=== PATIENT | male | born 1950 | race American Indian/Alaskan Native ===

== ENCOUNTER 2017-04-18 21:52 | Observation (INO) | payer OTHER ==
[2017-04-18 21:59] VITALS: BMI 46.0
[2017-04-18] MEDS ORDERED: Sodium Chloride 0.9% 1,000 ML IV STA (22:02)
--- NOTE | 2017-04-18 22:12 | ED PDOC ---
Arrival/HPI - General Time Seen by Provider: 04/18/17 22:02 Historian: Patient - History of Present Illness Narrative History of Present Illness (Text): 04/18/17 22:04 66yo morbidly obese male with PMhx of hypertension, NIDDM, hypercholestremia, CVA bib Bls present with complaint of nausea and vomiting. The by the bedside states patient had CVA 3weeks ago and currently at [facility] where he came from. States he started vomiting today. Vomited x3 today. Also report cough and elevated BP. Patient denies diarrhea, abdominal pain, chest pain, SOB, visual changes, headache, any other complaint. Past Medical History - Provider Review Nursing Documentation Reviewed: Yes Family/Social History - Physician Review Nursing Documentation Reviewed: Yes Family/Social History: Unknown Family HX Allergies/Home Meds Allergies/Adverse Reactions: Allergies No Known Allergies Allergy (Verified 04/18/17 21:59) Home Medications: Home Meds Medication Instructions Recorded Confirmed Amlodipine/Valsartan [Exforge 5 1 tab PO DAILY 04/18/17 04/18/17 mg-160 mg] Enalapril Maleate [Vasotec] 20 mg PO BID 04/18/17 04/18/17 Fenofibrate Nanocrystallized 145 mg PO DAILY 04/18/17 04/18/17 [Tricor] Hydrochlorothiazide [Microzide] 12.5 mg PO DAILY 04/18/17 04/18/17 Insulin Aspart Prot/Insuln Asp 30 unit SQ BID 04/18/17 04/18/17 [Novolog Mix 70-30 Vial] Linagliptin [Tradjenta] 5 mg PO DAILY 04/18/17 04/18/17 Metoprolol Tartrate [Lopressor] 50 mg PO BID 04/18/17 04/18/17 Phenytoin, Extended [Dilantin 100 mg PO TID 04/18/17 04/18/17 Kapseals] Pregabalin [Lyrica] 50 mg PO DAILY 04/18/17 04/18/17 Rosuvastatin Calcium [Crestor] 10 mg PO DAILY 04/18/17 04/18/17 amLODIPine [Norvasc] 10 mg PO DAILY 04/18/17 04/18/17 levETIRAcetam [Keppra] 500 mg PO BID 04/18/17 04/18/17 Review of Systems - Physician Review All systems were reviewed & negative as marked: Yes - Review of Systems Constitutional: Normal Eyes: Normal ENT: Normal Respiratory: Cough. absent: SOB, Sputum, Wheezing Cardiovascular: Normal Gastrointestinal: Nausea, Vomiting. absent: Abdominal Pain, Constipation, Diarrhea, Hematochezia, Hematemesis Genitourinary Male: Normal Musculoskeletal: Normal Skin: Normal Neurological: Normal Endocrine: Normal Hemo/Lymphatic: Normal Psychiatric: Normal Physical Exam Vital Signs Reviewed: Yes Vital Signs Temp Pulse Resp BP Pulse Ox 04/19/17 00:18 71 15 172/89 H 94 L 04/18/17 22:00 98.3 F 75 18 143/52 L 96 Temperature: Afebrile Blood Pressure: Normal Pulse: Regular Respiratory Rate: Normal Appearance: Positive for: Well-Appearing, Non-Toxic, Comfortable Pain Distress: None Mental Status: Positive for: Alert and Oriented X 3 - Systems Exam Head: Present: Atraumatic, Normocephalic Pupils: Present: PERRL Extroacular Muscles: Present: EOMI Conjunctiva: Present: Normal Mouth: Present: Moist Mucous Membranes Neck: Present: Normal Range of Motion Respiratory/Chest: Present: Clear to Auscultation, Good Air Exchange. No: Respiratory Distress, Accessory Muscle Use, Wheezes, Decreased Breath Sounds, Rales, Retracting, Rhonchi, Tachypneic Cardiovascular: Present: Regular Rate and Rhythm, Normal S1, S2. No: Murmurs Abdomen: Present: Distention (Secondary to body habitus), Normal Bowel Sounds, Other (Soft). No: Tenderness, Peritoneal Signs, Rebound, Guarding, McBurney's Point Tender, Rovsing's Sign Present Back: Present: Normal Inspection Upper Extremity: Present: Normal Inspection. No: Cyanosis, Edema Lower Extremity: Present: Normal Inspection. No: Edema Neurological: Present: GCS=15, CN II-XII Intact, Speech Normal Skin: Present: Warm, Dry, Normal Color. No: Rashes Psychiatric: Present: Alert, Oriented x 3, Normal Insight, Normal Concentration Medical Decision Making ED Course and Treatment: 04/19/17 00:[address] IMPRESSION: 1. Nonspecific white matter changes. Acute infarction may be CT occult within first 24 hours. If a focal deficit persists, consider followup CT or MRI for further evaluation. 2. Incidental/non-acute findings are described above. Abdominal/Pelvic CT IMPRESSION: 1. Bilateral pleural effusions, RIGHT > LEFT. 2. Perinephric stranding, nonspecific. Correlate with urinalysis to exclude infection. 3. Prostate enlargement. Followup as clinically warranted. 4. Incidental/non-acute findings are described above EKG Sinus rhythm with 1st AV block; LAD @75bpm Pt in ED for stated history. His vomiting resolved after 2episodes of vomiting in ED. No leukocytosis was noted. Cr of 1.9 was noted. No old lab to compare. This could be pre renal azotemia. PT was hydrated in ED. Case was DW Dr. Leggett and pt was placed on OBS. - Lab Interpretations Lab Results: 04/18/17 22:35 04/18/17 22:35 Lab Results 04/18/17 22:35: Sodium 143, Potassium 3.8, Chloride 102, Carbon Dioxide 24, Anion Gap 21 H, BUN 18, Creatinine 1.9 H, Est GFR ( Amer) 43, Est GFR ( Non-Af Amer) 36, Random Glucose 205 H, Calcium 9.6, Total Bilirubin 0.5, AST 25 , ALT 24, Alkaline Phosphatase 96, Lactate Dehydrogenase 485, Total Creatine Kinase 112, Troponin I 0.02, Total Protein 6.9, Albumin 3.6, Globulin 3.3, Albumin/Globulin Ratio 1.1, Amylase 43, Lipase 47 04/18/17 22:35: PT 20.4 H, INR 1.77 H, APTT 41.0 H 04/18/17 22:35: WBC 9.9, RBC 3.78, Hgb 11.0 L, Hct 31.7 L, MCV 83.9, MCH 29.1, MCHC 34.7, RDW 12.9, Plt Count 286, MPV 9.5, Gran % 84.9 H, Lymph % (Auto) 9.7 L , Harnett % (Auto) 3.9, Eos % (Auto) 1.3 L, Baso % (Auto) 0.2, Gran # 8.41 H, Lymph # (Auto) 1.0 L, Harnett # (Auto) 0.4, Eos # (Auto) 0.1, Baso # (Auto) 0.02 - RAD Interpretation Radiology Orders: 02/28/18 22:03 ABDOMEN & PELVIS [ABD & PELVIS W/O PO OR IV CONT] [CT] Stat 04/18/17 22:49 HEAD W/O CONTRAST [CT] Stat - Medication Orders Current Medication Orders: Acetaminophen (Tylenol 325mg Tab) 650 mg PO Q6H PRN PRN Reason: Fever >100.4 F Amlodipine Besylate (Norvasc) 10 mg PO DAILY [facility] Sodium Chloride (Sodium Chloride 0.9%) 1,000 mls @ 100 mls/hr IV .Q10H STA Stop: 04/19/17 08:01 Last Admin: 04/18/17 22:34 Dose: 100 mls/hr eMAR Start Stop Document 04/18/17 22:34 CNR (Rec: 04/18/17 22:35 CNR [facility] [place] [facility] [id number] Intravenous Solution Start Date 04/18/17 Start Time 22:35 Sodium Chloride (Sodium Chloride 0.45%) 1,000 mls @ 100 mls/hr IV .Q10H [facility] Insulin Human Regular (Humulin R High) 0 units SC ACHS [facility] PRN Reason: Protocol Levalbuterol HCl (Xopenex) 1.25 mg IH TIDRESP [facility] Levetiracetam (Keppra) 500 mg PO BID [facility] Metoprolol Tartrate (Lopressor) 50 mg PO BID [facility] Ondansetron HCl (Zofran Inj) 4 mg IVP Q6H PRN PRN Reason: Nausea/Vomiting Pantoprazole Sodium (Protonix Inj) 40 mg IVP DAILY [facility] Phenytoin Sodium (Dilantin) 100 mg PO TID [facility] Pregabalin (Lyrica) 50 mg PO DAILY [facility] Discontinued Medications Famotidine (Pepcid) 20 mg IVP STAT STA Stop: 04/18/17 22:03 Last Admin: 04/18/17 22:35 Dose: 20 mg IVP Administration Document 04/18/17 22:35 CNR (Rec: 04/18/17 22:35 CNR [facility] [place] [facility] [id number] Charges for Administration # of IVP Administrations 1 Ondansetron HCl (Zofran Inj) 4 mg IVP STAT STA Stop: 04/18/17 22:03 Last Admin: 04/18/17 22:35 Dose: 4 mg IVP Administration Document 04/18/17 22:35 CNR (Rec: 04/18/17 22:35 CNR [facility] [id number]) Charges for Administration # of IVP Administrations 1 Disposition/Present on Arrival - Present on Arrival Any Indicators Present on Arrival: No History of DVT/PE: No History of Uncontrolled Diabetes: No Urinary Catheter: No History of Decub. Ulcer: No History Surgical Site Infection Following: None - Disposition Have Diagnosis and Disposition been Completed?: Yes Diagnosis: Pleural effusion, Vomiting, Renal insufficiency Disposition: HOSPITALIZED Disposition Time: 01:05 Patient Plan: Admission Patient Problems: Current Active Problems Problem Status Onset Pleural effusion Acute Vomiting Acute Condition: FAIR
[2017-04-18 22:57] LABS: BASO # 0.02 K/mm3 (0.0-2.0); BASO % 0.2 % (0.0-3.0); EOS # 0.1 (0.0-0.7); EOS % 1.3 % (1.5-5.0); GRAN # 8.41 (1.4-6.5); GRAN % 84.9 % (50.0-68.0); LYMPH % 9.7 % (22.0-35.0); MEAN CELL VOLUME 83.9 fl (80.0-105.0); MEAN CORPUSCULAR HEMOGLOBIN 29.1 pg (25.0-35.0); MEAN CORPUSCULAR HGB CONC 34.7 g/dl (31.0-37.0); MEAN PLATELET VOLUME 9.5 fl (7.0-11.0); MONO # 0.4 (0.1-0.6); MONO % 3.9 % (1.0-6.0); RBC 3.78 10^6/uL (3.5-6.1); RED CELL DISTRIBUTION WIDTH 12.9 % (11.5-14.5); WHITE BLOOD COUNT 9.9 10^3/ul (4.5-11.0)
[2017-04-18 23:05] LABS: ALB/GLOB RATIO 1.1 (1.1-1.8); ALBUMIN 3.6 g/dL (3.0-4.8); CALCIUM 9.6 mg/dL (8.4-10.5)
[2017-04-18 23:17] LABS: TROPONIN I 0.02 ng/mL
[2017-04-18 23:24] LABS: INR 1.77 (0.93-1.08); PROTHROMBIN TIME 20.4 SECONDS (9.4-12.5)
--- NOTE | 2017-04-19 00:40 | CT ---
EXAM: CT Head Without Intravenous Contrast CLINICAL HISTORY: 66 years old, male; Signs and symptoms; Other: Vomiting TECHNIQUE: Axial computed tomography images of the head/brain without intravenous contrast. All CT scans at this facility use one or more dose reduction techniques, viz.: automated exposure control; ma/kV adjustment per patient size (including targeted exams where dose is matched to indication; i.e. head); or iterative reconstruction technique. Coronal and sagittal reformatted images were created and reviewed. COMPARISON: No relevant prior studies available. FINDINGS: Brain: Moderate atrophy. No intracranial hemorrhage. No mass. Several scattered foci of decreased attenuation within periventricular/subcortical white matter. Probable chronic lacunar infarcts about basal ganglia/mckenna radiata/internal capsule. No definite edema. Ventricles: No hydrocephalus. Bones/joints: No acute fracture. Soft tissues: Unremarkable. Sinuses: Scattered minimal mucosal thickening. LEFT maxillary retention cyst. Mastoid air cells: No mastoid effusion. Orbits: Unremarkable as visualized. IMPRESSION: 1. Nonspecific white matter changes. Acute infarction may be CT occult within first 24 hours. If a focal deficit persists, consider followup CT or MRI for further evaluation. 2. Incidental/non-acute findings are described above.
--- NOTE | 2017-04-19 00:54 | CT ---
EXAM: CT Abdomen and Pelvis Without Intravenous Contrast CLINICAL HISTORY: 66 years old, male; Signs and symptoms; Vomiting TECHNIQUE: Axial computed tomography images of the abdomen and pelvis without intravenous contrast. All CT scans at this facility use one or more dose reduction techniques, viz.: automated exposure control; ma/kV adjustment per patient size (including targeted exams where dose is matched to indication; i.e. head); or iterative reconstruction technique. Coronal and sagittal reformatted images were created and reviewed. COMPARISON: No relevant prior studies available. FINDINGS: Limitations: Lack of intravenous contrast. Motion artifact - mild. Streak artifact - mild. Lower thorax: Minimal atelectasis/scarring. Small bilateral pleural effusions, right greater than left. Mild cardiomegaly. Small hiatal hernia. ABDOMEN: Liver: Unremarkable. Gallbladder and bile ducts: No calcified stones. No ductal dilation. Pancreas: Unremarkable. No ductal dilation. Spleen: Mild splenomegaly, AP dimension. Adrenals: No mass. Kidneys and ureters: Mild stranding about kidneys, nonspecific. No renal calculi. No hydronephrosis. Stomach and bowel: Few scattered diverticula within colon. No associated inflammatory stranding. No definite mural thickening. No obstruction. Appendix: Normal caliber. No definite inflammation. PELVIS: Bladder: Unremarkable. No stones. Reproductive: Enlarged prostate gland. Subperitoneal space: Mild stranding in presacral space, nonspecific. ABDOMEN and PELVIS: Intraperitoneal space: No significant fluid collection. No free air. Bones/joints: Mild degenerative changes of spine. No acute fracture. Probable bone island. Soft tissues: Minimal left gynecomastia. Small umbilical hernia containing fat. Minimal to mild stranding within subcutaneous tissues. Vasculature: Minimal atherosclerotic disease. No aneurysm. Lymph nodes: No pathologically enlarged lymph nodes. IMPRESSION: 1. Bilateral pleural effusions, RIGHT > LEFT. 2. Perinephric stranding, nonspecific. Correlate with urinalysis to exclude infection. 3. Prostate enlargement. Followup as clinically warranted. 4. Incidental/non-acute findings are described above.
[2017-04-19] MEDS: Sodium Chloride 0.45% 1,000 ML IV SCH (01:33)
[2017-04-19 01:37] LABS: URINE BILIRUBIN NEGATIVE (NEGATIVE); URINE BLOOD NEGATIVE (NEGATIVE); URINE GLUCOSE (UA) NEGATIVE (NEGATIVE); URINE LEUKOCYTE ESTERASE NEGATIVE Leu/uL (NEGATIVE); URINE NITRATE NEGATIVE (NEGATIVE); URINE PROTEIN 30 mg/dL (<30 mg/dL); URINE UROBILINOGEN 0.2 E.U./dL (<1 E.U./dL)
[2017-04-19 01:40] LABS: URINE APPEARANCE CLEAR (CLEAR); URINE COLOR YELLOW (YELLOW)
[2017-04-19 01:49] LABS: URINE BACTERIA RARE (NEG); URINE EPITHELIAL CELLS 0 - 2 /hpf (0-5); URINE RBC 0 - 2 /hpf (0-2)
--- NOTE | 2017-04-19 05:57 | CP.PCM.PN ---
Subjective - Date & Time of Evaluation Date of Evaluation: 04/19/17 Time of Evaluation: 05:56 - Subjective Subjective: Nurse calls with patient's BP 190/84. Seen at bedside. Has no complaints. No headache,dizziness, chest pain, sob. Medical record was reviewed. This 66 year old male was admitted with intractable nausea and vomiting. Has PMH of HTN, seizure, HLD, NIDDM, diabetic neuropathy, CVA,morbid obesity, HELEN, mentally challenged. Objective - Vital Signs/Intake and Output Vital Signs (last 24 hours): Temp Pulse Resp BP Pulse Ox 98.8 F 72 20 158/65 H 94 L 04/19/17 04:25 04/19/17 04:25 04/19/17 04:25 04/19/17 04:25 04/19/17 01:37 Intake and Output: 04/18/17 04/19/17 18:59 06:59 Intake Total 0 Output Total 100 Balance -100 - Medications Medications: Current Medications Acetaminophen (Tylenol 325mg Tab) 650 mg PO Q6H PRN PRN Reason: Fever >100.4 F Amlodipine Besylate (Norvasc) 10 mg PO DAILY [facility] Sodium Chloride (Sodium Chloride 0.9%) 1,000 mls @ 100 mls/hr IV .Q10H STA Stop: 04/19/17 08:01 Last Admin: 04/18/17 22:34 Dose: 100 mls/hr Sodium Chloride (Sodium Chloride 0.45%) 1,000 mls @ 100 mls/hr IV .Q10H [facility] Last Admin: 04/19/17 01:33 Dose: 100 mls/hr Insulin Human Regular (Humulin R High) 0 units SC ACHS [facility] PRN Reason: Protocol Levalbuterol HCl (Xopenex) 1.25 mg IH TIDRESP [facility] Levetiracetam (Keppra) 500 mg PO BID [facility] Metoprolol Tartrate (Lopressor) 50 mg PO BID [facility] Ondansetron HCl (Zofran Inj) 4 mg IVP Q6H PRN PRN Reason: Nausea/Vomiting Pantoprazole Sodium (Protonix Inj) 40 mg IVP DAILY [facility] Phenytoin Sodium (Dilantin) 100 mg PO TID [facility] Pregabalin (Lyrica) 50 mg PO DAILY [facility] - Labs Labs: PT 20.4 SECONDS (9.4-12.5) H 04/18/17 22:35 INR 1.77 (0.93-1.08) H 04/18/17 22:35 APTT 41.0 Seconds (25.1-36.5) H 04/18/17 22:35 - Constitutional Appears: Well, No Acute Distress - Head Exam Head Exam: ATRAUMATIC, NORMAL INSPECTION, NORMOCEPHALIC Additional comments: Obese. - Eye Exam Eye Exam: Normal appearance - ENT Exam ENT Exam: Normal External Ear Exam - Neck Exam Neck Exam: Normal Inspection - Respiratory Exam Respiratory Exam: NORMAL BREATHING PATTERN - Cardiovascular Exam Cardiovascular Exam: absent: JVD - GI/Abdominal Exam GI & Abdominal Exam: absent: Distended - Rectal Exam Rectal Exam: Deferred - Exam Additional comments: Deferred. - Extremities Exam Extremities Exam: Normal Inspection - Back Exam Back Exam: NORMAL INSPECTION - Neurological Exam Neurological Exam: Alert - Psychiatric Exam Psychiatric exam: Normal Affect, Normal Mood - Skin Skin Exam: Normal Color Assessment and Plan - Assessment and Plan (Free Text) Assessment: Elevated blood pressure reading. HTN. Morbid obesity. NIDDM. Diabetic neuropathy. HLD. Seizure disorder. Plan: Lopressor 50 mg po now instead of at 10am. Continue present management as per PMD.
[2017-04-19 07:23] LABS: BASO # 0.03 K/mm3 (0.0-2.0); BASO % 0.3 % (0.0-3.0); EOS # 0.1 (0.0-0.7); EOS % 0.9 % (1.5-5.0); GRAN # 9.12 (1.4-6.5); GRAN % 83.6 % (50.0-68.0); HEMOGLOBIN 10.8 g/dL (14.0-18.0); LYMPH # 1.3 (1.2-3.4); LYMPH % 11.6 % (22.0-35.0); MEAN CELL VOLUME 84.6 fl (80.0-105.0); MEAN CORPUSCULAR HEMOGLOBIN 28.7 pg (25.0-35.0); MEAN PLATELET VOLUME 9.5 fl (7.0-11.0); MONO # 0.4 (0.1-0.6); MONO % 3.6 % (1.0-6.0); RBC 3.76 10^6/uL (3.5-6.1); RED CELL DISTRIBUTION WIDTH 13.2 % (11.5-14.5); WHITE BLOOD COUNT 10.9 10^3/ul (4.5-11.0)
[2017-04-19 07:43] LABS: ALB/GLOB RATIO 1.1 (1.1-1.8); ALBUMIN 3.5 g/dL (3.0-4.8); CALCIUM 9.2 mg/dL (8.4-10.5); MAGNESIUM 1.6 mg/dL (1.7-2.2)
[2017-04-19] MEDS: Levalbuterol 1.25 MG/3 ML Inhal Soln UD IH SCH ×3 (07:48→20:06)
[2017-04-19 08:00] LABS: FREE T4 1.79 ng/dL (0.78-2.19)
[2017-04-19] MEDS: Insulin Reg-HIGH-Coverage SC SCH ×4 (08:12→21:51)
--- NOTE | 2017-04-19 10:31 | CARD ---
APPROVED REPORT EKG Measurement Heart [id number] <Conclusion> Somatic Tremors. Poor Quality EKG. Sinus rhythm with 1st degree AV block Left axis deviation Poor R Progression in V-Leads. ST & T wave abnormality,
[2017-04-19] MEDS ORDERED: Metoclopramide 5 mg/5 ml Oral Sol PO STA (12:09)
[2017-04-19] MEDS: Nystatin 100,000 Units/gm Topical Pow(15 gm) TOP SCH (19:32)
--- NOTE | 2017-04-19 20:51 | US ---
EXAM: US Abdomen Complete CLINICAL HISTORY: 66 years old, male; Signs and symptoms; Bloating; Additional info: Abdominal bloating TECHNIQUE: Real-time ultrasound of the abdomen (complete) with image documentation. COMPARISON: CT - ABD PELVIS W/O PO OR IV CONT 2017-04-19 00:03 FINDINGS: Liver: Enlarged, 18.0 cm. Fatty infiltration. No mass. No intrahepatic ductal dilatation. Gallbladder: Gallstones. Up to 0.48 cm wall thickness. No pericholecystic fluid. No sonographic Nava's sign. Common bile duct: No dilatation. No stones. Pancreas: Obscured by overlying bowel gas. Kidneys: Normal echogenicity. No hydronephrosis. Spleen: No splenomegaly. Aorta: Obscured by overlying bowel gas. Inferior vena cava: Unremarkable. Free fluid: No significant free fluid. Pleural space: Right pleural effusion. IMPRESSION: 1. Cholelithiasis with gallbladder wall thickening. Clinical correlation is needed. 2. Right pleural effusion. 3. Incidental/non-acute findings are described above.
[2017-04-20] MEDS: Sodium Chloride 0.45% 1,000 ML IV SCH ×2 (00:31→12:11)
--- NOTE | 2017-04-20 01:39 | CON ---
REASON FOR CONSULTATION: Cardiac evaluation. BRIEF CLINICAL HISTORY: This is a 66-year-old morbidly obese male with past medical history significant for diabetes more than 15 years, hypertension, hyperlipidemia, CVA, was just discharged from [facility] after being admitted with CVA because of nausea and vomiting. Patient denies any chest pain, shortness of breath or any palpitation. Cardiology consult was called for cardiac evaluation. Patient denies any chest pain. PAST MEDICAL HISTORY: Significant for "ND" 2 years ago, was taken to [facility] where the patient had a cardiac catheterization done and was told arteries are clean, does not need any stent. Significant for diabetes, hypertension, and hyperlipidemia. SOCIAL HISTORY: Denies any history of alcohol abuse. PAST SURGICAL HISTORY: Nothing significant. FAMILY HISTORY: Noncontributory. CURRENT MEDICATIONS: Patient is on amlodipine and valsartan that is Exforge combination 5/160 once daily, Keppra 500 mg, Lyrica, phenytoin, Tradjenta, insulin, rosuvastatin, Crestor, amlodipine, metoprolol, enalapril, and hydrochlorothiazide. ALLERGIES: NO KNOWN DRUG ALLERGIES. REVIEW OF SYSTEMS: As per HPI. PHYSICAL EXAMINATION: VITAL SIGNS: Temperature afebrile, heart rate 70, blood pressure 165/85, height of the patient is 5 feet 11 inches, weight of the patient 330 pounds, body mass index 46 kg/m2. HEENT: PERRLA. Extraocular muscles intact. NECK: Supple. No carotid bruits or thyromegaly. CHEST: Clear to auscultation. HEART: S1, S2, regular. ABDOMEN: Soft. EXTREMITIES: Clubbing and cyanosis negative. LABORATORY DATA: WBC 10.9, hemoglobin 10.6, hematocrit 31.8, platelet count 291. Chemistry showed sodium 142, potassium 3.6, chloride 102, carbon dioxide of 25, anion gap of 20, BUN 18, creatinine 1.7. Creatinine clearance is 41. EKG showed poor R-wave progression, normal sinus, LVH. IMPRESSION: Nausea, vomiting, significantly decreased creatinine clearance, chronic kidney disease stage III to IV, creatinine clearance of mL an hour, morbid obesity, diabetes, hypertension, hyperlipidemia, multiple risk factors for coronary artery disease, but patient states that he had a cardiac cath 2 years ago and was told mild disease, no stent required. RECOMMENDATION: Monitor electrolytes closely, watch for nausea, vomiting. Avoid nephrotoxic medication. We will get lipid profile, TSH, hemoglobin A1c. We will get echo to assess LV function. We will also get a copy of cath report from [facility]. Thank you Dr. Leggett for providing us the opportunity in taking care of the patient, Jack Erwin. Casie Fregoso MD cc: Tirnh Leggett MD
--- NOTE | 2017-04-20 03:18 | CON ---
DATE: HISTORY OF PRESENT ILLNESS: This is a 66-year-old male with past medical history of hypertension, diabetes, hypercholesterolemia, CVA 3 weeks ago. Patient went to [facility] for a rehab. While there, he started having vomiting and coughing, and his blood pressure was noted to be high, brought him to the hospital for further checkup. PAST MEDICAL HISTORY: Hypertension, diabetes, high cholesterol, CVA 3 weeks ago. REVIEW OF SYSTEMS: A 10-point review of systems was negative. HOME MEDICATIONS: Patient is on amlodipine, enalapril, metoprolol, Dilantin, and Keppra. PHYSICAL EXAMINATION: VITAL SIGNS: Blood pressure 143/52. HEENT: Normocephalic, atraumatic. NECK: Supple. NEUROLOGIC: Alert, awake, oriented x3. No aphasia. Cranial nerves II through XII are tested. Pupils reactive. EOM intact. Visual maravilla full. No facial asymmetry. Tongue midline. Motor examination; spontaneous movement of all the extremities noted. Deep tendon reflexes 1+. Both plantars are downgoing. Sensory appears intact. Cerebellar, gait deferred. IMPRESSION AND PLAN: A 66-year-old male who came from [facility] following a stroke 3 weeks ago. His left-sided weakness is improving. He started vomiting this morning, so brought him to [facility] for further workup. CAT scan of the head was done, which did not show any acute findings, no bleed. Also found to have some pleural effusion, right more than left, and workup in progress. Continue present management. We will follow up. Maikol Morrow MD
[2017-04-20 06:43] LABS: BASO # 0.04 K/mm3 (0.0-2.0); BASO % 0.4 % (0.0-3.0); EOS # 0.3 (0.0-0.7); EOS % 3.1 % (1.5-5.0); GRAN # 7.57 (1.4-6.5); GRAN % 75.8 % (50.0-68.0); HEMOGLOBIN 10.3 g/dL (14.0-18.0); LYMPH # 1.4 (1.2-3.4); MEAN CELL VOLUME 84.7 fl (80.0-105.0); MEAN CORPUSCULAR HEMOGLOBIN 28.1 pg (25.0-35.0); MEAN CORPUSCULAR HGB CONC 33.2 g/dl (31.0-37.0); MEAN PLATELET VOLUME 9.7 fl (7.0-11.0); MONO # 0.7 (0.1-0.6); MONO % 6.7 % (1.0-6.0); RBC 3.66 10^6/uL (3.5-6.1); RED CELL DISTRIBUTION WIDTH 13.1 % (11.5-14.5)
[2017-04-20 06:49] LABS: ALBUMIN 3.2 g/dL (3.0-4.8); MAGNESIUM 1.6 mg/dL (1.7-2.2)
[2017-04-20] MEDS: Levalbuterol 1.25 MG/3 ML Inhal Soln UD IH SCH ×3 (08:00→19:34)
--- NOTE | 2017-04-20 08:28 | HP ---
HISTORY OF PRESENT ILLNESS: Patient is 66 years old, who was sent from [facility] where he went for physical therapy. Patient has been having intractable nausea and vomiting. He had 4 to 5 episodes of vomiting. No abdominal pain. Patient's who is by the bedside states that he was admitted in [facility] from 03/31 to 04/13 after he had a second stroke. At that point, he was found to have AFib. He has been on anticoagulant and he was also found to have cholelithiasis. Initially, there was a plan to do cholecystectomy but it was held off because he started to improve. PAST MEDICAL HISTORY: Patient has significant past medical history of, 1. Hypertension. 2. Morbid obesity. 3. Mentally challenged. 4. History of CVA in 2009 with left hemiparesis. 5. Obstructive sleep apnea, but does not use BiPAP. 6. Non-insulin dependent diabetes. 7. Hypertension. 8. History of seizure disorder. 9. Diabetic neuropathy. 10. Hyperlipidemia. ALLERGIES: HE IS NOT ALLERGIC TO ANY MEDICATION. MEDICATIONS AT HOME: He is on Exforge 5/160, Keppra 500 twice a day, Lyrica 50 mg daily, Dilantin 100 mg three times a day, Tradjenta 5 mg daily, NovoLog, Crestor 10 mg daily, amlodipine 10 mg daily, metoprolol 50 mg twice a day, enalapril 20 mg twice a day. SOCIAL HISTORY: He lives with his . Denies smoking, drinking, or alcohol use. PHYSICAL EXAMINATION: GENERAL: He is awake, alert, retching, complains of feeling nauseous. VITAL SIGNS: He is afebrile. Pulse 72, respirations 20, blood pressure 176/84. LUNGS: Bilateral diffusely decreased breath sounds, more so in the bases. HEART: S1, S2 audible. Regular rate and rhythm. ABDOMEN: Soft, nontender, obese. No hepatosplenomegaly. NEUROLOGIC: He is awake and alert, has some left-sided 4/5 weakness. LABORATORY DATA: WBC is 10.9, hemoglobin 10.8, hematocrit 31.8, platelet of 291. PT is 20.4, INR 1.77. Chemistry: Sodium 142, potassium 3.7, chloride 102, CO2 of 25, BUN 18, creatinine 1.7, blood sugar of 205. CT scan of the abdomen and pelvis is unremarkable. CT scan of the head, nonspecific white matter changes. CT scan of the abdomen and pelvis showed bilateral pleural effusion, right more than the left and perinephric stranding, prostate enlargement. ASSESSMENT: 1. Intractable nausea and vomiting. Rule out acute cholecystitis. 2. Rule out gastroparesis. 3. Insulin-dependent diabetes. 4. Morbid obesity. 5. Pleural effusion. 6. Hypertension. 7. Hyperlipidemia. 8. Seizure disorder. PLAN: We will keep him n.p.o. We will give him IV fluids. I will check for Dilantin level, start him on Reglan, and GI consult by Dr. Suh, Cardiology consult by Dr. Olivarez, and Dr. Morrow also has been consulted. Follow up his electrolytes. Follow up patient in a.m. Trinh Leggett MD
[2017-04-20] MEDS: Insulin Reg-HIGH-Coverage SC SCH ×4 (08:39→21:30)
[2017-04-20] MEDS: Nystatin 100,000 Units/gm Topical Pow(15 gm) TOP SCH (10:11)
[2017-04-20] MEDS ORDERED: Magnesium Sulfate 1 gm in D5W 1 GM/100 ML BAG IV ONE ×2 (10:55→16:46)
[2017-04-20] MEDS ORDERED: Potassium Chloride 20 mEq ER Tab PO ONE (12:34)
--- NOTE | 2017-04-20 13:33 | PN ---
DATE: 04/20/2017 LOCATION: The patient in room 576, bed 1. REASON FOR CONSULTATION: History of CVA, hypertension, hyperlipidemia and diabetes mellitus, history of cardiac cath, cardiac evaluation. SUBJECTIVE: The patient is lying flat in bed without chest pain, shortness of breath or palpitation. The patient was admitted with nausea and vomiting. PHYSICAL EXAMINATION: VITAL SIGNS: Blood pressure 163/81, respirations 18, pulse 66, temperature 98.4. HEENT: Head is normocephalic. Eyes: Pupils normal. Conjunctivae slightly pale. NECK: JVP low. Carotids equal. THORAX: AP diameter normal. LUNGS: Clear. CARDIOVASCULAR: S1 and S2. ABDOMEN: Soft. No tenderness. No organomegaly. Bowel sounds normal. EXTREMITIES: No clubbing. No cyanosis. LABORATORY DATA: WBC 10.0, hemoglobin 10.3, hematocrit 31.0, platelets 263. Sodium 142, potassium 3.2, BUN 17, creatinine 1.5, glucose 168, another glucose 178, magnesium 1.6. AST, ALT normal. Total protein, albumin normal. 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 PLAN: The patient had cardiac catheterization 2 days ago at [facility]. As per the patient, it was told that he has normal coronaries. We will give potassium and magnesium therapy to the patient and we will repeat labs in the morning. In the meantime, the patient on hydralazine 25 t.i.d., Phenytoin 100 mg p.o. t.i.d., Keppra 500 b.i.d., metoprolol 50 b.i.d., Lyrica 50 daily, mag sulfate 1 g already ordered by Dr. Leggett, amlodipine 10 mg daily, Xopenex hand nebulizer therapy, K-Dur 40 mEq p.o. today. SMA-7, magnesium and phosphorus in the morning. Echo has been already ordered. We will follow. Casie Olivarez MD
--- NOTE | 2017-04-20 17:31 | CARD ---
APPROVED REPORT EXAM: Two-dimensional and M-mode echocardiogram with Doppler and color Doppler. INDICATION Chest Pain 2D DIMENSIONS Left Atrium (2D)5.5 (1.6-4.0cm)IVSd1.2 (0.7-1.1cm) LVDd5.8 (3.9-5.9cm)PWd1.5 (0.7-1.1cm) LVDs4.2 (2.5-4.0cm)FS (%) 28.3 % LVEF (%)54.0 (>50%) M-Mode DIMENSIONS Aortic Root3.90 (2.2-3.7cm)Aortic Cusp Exc.1.70 (1.5-2.0cm) Aortic Valve AoV Peak Arxnxvgg555.0cm/Beth Peak GR.7mmHg Mitral Valve MV E Xqfybbdw261.0cm/sMV A Lqewaixb17.1cm/sE/A ratio1.6 TDI Lateral E' Peak V6.53cm/sMedial E' Peak V4.87cm/sE/Lateral E'21.6 E/Medial E'29.0 Pulmonary Valve PV Peak Myncswkl79.5cm/sPV Peak Grad.2mmHg Tricuspid Valve TR Peak Glieqyff287qd/sRAP RGEGTZLY16btDfTT Peak Gr.36mmHg [id number] LEFT VENTRICLE The left ventricle is normal size. There is borderline to mild concentric left ventricular hypertrophy. Proximal septal thickening is noted. The left ventricular function is low normal.EF- 50-55% There is borderline hypokinesis in the basal inferolateral wall. The left ventricular diastolic function is normal. No left ventricle thrombus noted on this study. There is no ventricular septal defect visualized. There is no left ventricular aneurysm. There is no mass noted in the left ventricle. RIGHT VENTRICLE The right ventricle is normal size. There is normal right ventricular wall thickness. The right ventricular systolic function is normal. ATRIA The left atrium is mildly dilated. The right atrium size is normal. The interatrial septum is intact with no evidence for an atrial septal defect. AORTIC VALVE The aortic valve is calcified and displays decreased opening. There is trace aortic regurgitation. Aortic sclerosis Vs Mild There is no aortic valvular vegetation. MITRAL VALVE The mitral valve is thickened but opens well. Mitral regurgitation is mild. There is no mitral valve stenosis. There is no evidence of mitral valve prolapse. TRICUSPID VALVE The tricuspid valve leaflets are thickened , but open well. There is mild tricuspid regurgitation.RVSP-46 mmof hg. There is mild pulmonary hypertension. There is no tricuspid valve stenosis. There is no tricuspid valve prolapse or vegetation. PULMONIC VALVE The pulmonic valve is mildly thickened. There is trace to mild pulmonic valvular regurgitation. There is no pulmonic valvular stenosis. GREAT VESSELS The aortic root is normal in size. The ascending aorta is normal in size. The pulmonary artery is normal. The IVC is normal in size and collapses >50% with inspiration. PERICARDIAL EFFUSION There is no pleural effusion. There is no pericardial effusion. <Conclusion> The left ventricle is normal size. There is borderline to mild concentric left ventricular hypertrophy. Proximal septal thickening is noted. The left ventricular function is low normal.EF- 50-55% There is trace aortic regurgitation. Aortic sclerosis Vs Mild Mitral regurgitation is mild. There is mild tricuspid regurgitation.RVSP-46 mmof hg. There is mild pulmonary hypertension. There is no pericardial effusion.
--- NOTE | 2017-04-20 18:00 | CP.PCM.CON ---
<Carolyn Cantu - Last Filed: 04/20/17 18:00> History of Present Illness - History of Present Illness History of Present Illness: Seen and examined at the bedside this afternoon, chart review. Request for GI consult is for nausea/vomiting. HPI: This is a 66-year-old male with a past medical history of hypertension, CVA with left hemiparesis, insulin-dependent diabetes, mentally challenged, was sent from [facility] [place] for intractable nausea and vomiting. The patient was reported to have 4-5 episodes of vomiting. Patient currently denies any symptoms of nausea or vomiting patient did complain of feeling dizzy at the time. The patient denies any loss in appetite, difficulty swallowing or abdominal pain. Patient was recently admitted in [facility] in March for her second stroke, patient was found to have atrial fibrillation and on anticoagulants. He also was found to have cholelithiasis and was planned for cholecystectomy but this was held off until patient's status improved. The patient denies any feeling of abdominal bloating postprandial.on admission the patient had an abdominal ultrasound which was positive for gallstones and wall thickening and no pericholecystic fluid. CBD was negative for dilatation, did show some fatty infiltrations in the liver and right pleural effusion. This patient also had a CT scan of abdomen and pelvis which showed colonic I reticula no inflammation, pleural effusion and very phrenic stranding otherwise no acute findings. See [facility] for full report. Patient denies ever having endoscopy or colonoscopy. Past medical history: Hypertension mentally challenged, obstructive sleep apnea , [id number] diabetes, seizure disorder, hyperlipidemia, diabetic neuropathy, enlarged prostate Surgical history :denies Family history: Denies Allergies: No known drug allergies Medications: Reviewed as per MAR Social history: No history of smoking, EtOH or drug use ROS: Systems reviewed positive finding see HPI Past Patient History - Past Social History Smoking Status: Never Smoked - CARDIAC Hx Cardiac Disorders: No Hx Hypertension: Yes - PULMONARY Hx Respiratory Disorders: No - NEUROLOGICAL HX Cerebrovascular Accident: Yes (3 weeks ago per ) Hx Seizures: Yes - HEENT Hx HEENT Problems: No - RENAL Hx Chronic Kidney Disease: No - ENDOCRINE/METABOLIC Hx Endocrine Disorders: No - HEMATOLOGICAL/ONCOLOGICAL Hx Blood Disorders: No - INTEGUMENTARY Hx Dermatological Problems: No - MUSCULOSKELETAL/RHEUMATOLOGICAL Hx Musculoskeletal Disorders: No Hx Falls: No Other/Comment: Morbid obesity - GASTROINTESTINAL Hx Gastrointestinal Disorders: Yes Other/Comment: gallstones - GENITOURINARY/GYNECOLOGICAL Hx Prostate Problems: Yes (enlarged) - PSYCHIATRIC Hx Psychophysiologic Disorder: No Hx Substance Use: No - SURGICAL HISTORY Hx Surgeries: No (unknown) - ANESTHESIA Hx Anesthesia: Yes Hx Anesthesia Reactions: No Meds Allergies/Adverse Reactions: Allergies Allergy/AdvReac Type Severity Reaction Status Date / Time No Known Allergies Allergy Verified 04/18/17 21:59 - Medications Medications: Current Medications Acetaminophen (Tylenol 325mg Tab) 650 mg PO Q6H PRN PRN Reason: Fever >100.4 F Amlodipine Besylate (Norvasc) 10 mg PO DAILY [facility] Last Admin: 04/20/17 10:06 Dose: 10 mg Hydralazine HCl (Apresoline) 25 mg PO TID [facility] Last Admin: 04/20/17 13:30 Dose: 25 mg Hydralazine HCl (Apresoline) 10 mg PO QID PRN PRN Reason: for sbp>170 Magnesium Sulfate/Dextrose (Magnesium Sulfate 1 Gm/100 Ml D5w) 1 gm in 100 mls @ 100 mls/hr IV ONCE ONE Stop: 04/20/17 17:45 Insulin Human Regular (Humulin R High) 0 units SC ACHS [facility] PRN Reason: Protocol Last Admin: 04/20/17 12:18 Dose: 2 units Levalbuterol HCl (Xopenex) 1.25 mg IH TIDRESP [facility] Last Admin: 04/20/17 14:39 Dose: 1.25 mg Levetiracetam (Keppra) 500 mg PO BID [facility] Last Admin: 04/20/17 10:05 Dose: 500 mg Metoclopramide HCl (Reglan) 10 mg IVP ACBD [facility] Metoprolol Tartrate (Lopressor) 50 mg PO BID [facility] Last Admin: 04/20/17 10:06 Dose: 50 mg Nystatin (Nystop Topical Powder) 0 gm TOP BID [facility] Last Admin: 04/20/17 10:11 Dose: 1 applic Pantoprazole Sodium (Protonix Inj) 40 mg IVP DAILY [facility] Last Admin: 04/20/17 10:04 Dose: 40 mg Phenytoin Sodium (Dilantin) 100 mg PO TID [facility] Last Admin: 04/20/17 13:30 Dose: 100 mg Pregabalin (Lyrica) 50 mg PO DAILY [facility] Last Admin: 04/20/17 10:07 Dose: 50 mg Physical Exam - Constitutional Appears: No Acute Distress - Head Exam Head Exam: NORMOCEPHALIC - Eye Exam Eye Exam: Normal appearance. absent: Scleral icterus - ENT Exam ENT Exam: Mucous Membranes Moist - Neck Exam Neck exam: Positive for: Normal Inspection - Respiratory Exam Respiratory Exam: NORMAL BREATHING PATTERN. absent: Respiratory Distress - Cardiovascular Exam Cardiovascular Exam: +S1, +S2 - GI/Abdominal Exam GI & Abdominal Exam: Normal Bowel Sounds, Soft. absent: Guarding, Rebound, Tenderness - Extremities Exam Extremities exam: Positive for: pedal pulses present. Negative for: calf tenderness, pedal edema - Neurological Exam Neurological exam: Alert, Oriented x3 Additional comments: noted to have some left-sided weakness Results - Vital Signs Recent Vital Signs: Last Vital Signs Temp 98.2 F 04/20/17 16:07 Pulse 67 04/20/17 16:07 Resp 18 04/20/17 16:07 BP 173/90 H 04/20/17 16:07 Pulse Ox 92 L 04/20/17 16:07 - Labs Result Diagrams: 04/20/17 06:00 04/20/17 06:00 Labs: Laboratory Results - last 24 hr 04/19/17 04/20/17 04/20/17 21:38 06:00 06:00 WBC 10.0 RBC 3.66 Hgb 10.3 L Hct 31.0 L MCV 84.7 MCH 28.1 MCHC 33.2 RDW 13.1 Plt Count 263 MPV 9.7 Gran % 75.8 H Lymph % (Auto) 14.0 L Buchanan % (Auto) 6.7 H Eos % (Auto) 3.1 Baso % (Auto) 0.4 Gran # 7.57 H Lymph # (Auto) 1.4 Buchanan # (Auto) 0.7 H Eos # (Auto) 0.3 Baso # (Auto) 0.04 Sodium 142 Potassium 3.2 L Chloride 103 Carbon Dioxide 28 Anion Gap 14 BUN 17 Creatinine 1.5 Est GFR ( Amer) 57 Est GFR (Non-Af Amer) 47 POC Glucose (mg/dL) 168 H Random Glucose 165 H Hemoglobin A1c Calcium 9.0 Phosphorus 3.5 Magnesium 1.6 L Total Bilirubin 0.4 AST 23 ALT 22 Alkaline Phosphatase 89 Total Protein 6.4 Albumin 3.2 Globulin 3.2 Albumin/Globulin Ratio 1.0 L Triglycerides 70 Cholesterol 125 L LDL Cholesterol Direct 52 HDL Cholesterol 43 TSH 3rd Generation 04/20/17 04/20/17 04/20/17 06:00 06:00 07:28 WBC RBC Hgb Hct MCV MCH MCHC RDW Plt Count MPV Gran % Lymph % (Auto) Buchanan % (Auto) Eos % (Auto) Baso % (Auto) Gran # Lymph # (Auto) Buchanan # (Auto) Eos # (Auto) Baso # (Auto) Sodium Potassium Chloride Carbon Dioxide Anion Gap BUN Creatinine Est GFR ( Amer) Est GFR (Non-Af Amer) POC Glucose (mg/dL) 144 H Random Glucose Hemoglobin A1c 8.6 H Calcium Phosphorus Magnesium Total Bilirubin AST ALT Alkaline Phosphatase Total Protein Albumin Globulin Albumin/Globulin Ratio Triglycerides Cholesterol LDL Cholesterol Direct HDL Cholesterol TSH 3rd Generation 1.16 04/20/17 04/20/17 11:26 16:37 WBC RBC Hgb Hct MCV MCH MCHC RDW Plt Count MPV Gran % Lymph % (Auto) Buchanan % (Auto) Eos % (Auto) Baso % (Auto) Gran # Lymph # (Auto) Buchanan # (Auto) Eos # (Auto) Baso # (Auto) Sodium Potassium Chloride Carbon Dioxide Anion Gap BUN Creatinine Est GFR ( Amer) Est GFR (Non-Af Amer) POC Glucose (mg/dL) 178 H 171 H Random Glucose Hemoglobin A1c Calcium Phosphorus Magnesium Total Bilirubin AST ALT Alkaline Phosphatase Total Protein Albumin Globulin Albumin/Globulin Ratio Triglycerides Cholesterol LDL Cholesterol Direct HDL Cholesterol TSH 3rd Generation Assessment & Plan - Assessment and Plan (Free Text) Assessment: Assessment: This is a 66-year-old male who came in with intractable nausea and vomiting has a history of cholelithiasis, patient did complain of dizziness, differentials to consider his gastroparesis, patient has history of diabetes mellitus CVA with left-sided hemiparesis Pleural effusion Hypertension History of seizure disorder Hyperlipidemia Plan: Continue diet as tolerated, would recommend soft food Continue Protonix 40 daily On Dilantin Monitor LFTs As per cardio and neuro DC Reglan, patient history of seizures Thank you for this consult and for allowing us to participate in your patient's care, further recommendations based upon clinical course. Seen and discussed with Dr. Suh. <Clau Suh V - Last Filed: 04/20/17 22:45> Meds - Medications Medications: Current Medications Acetaminophen (Tylenol 325mg Tab) 650 mg PO Q6H PRN PRN Reason: Fever >100.4 F Amlodipine Besylate (Norvasc) 10 mg PO DAILY [facility] Last Admin: 04/20/17 10:06 Dose: 10 mg Hydralazine HCl (Apresoline) 25 mg PO TID [facility] Last Admin: 04/20/17 17:29 Dose: 25 mg Hydralazine HCl (Apresoline) 10 mg PO QID PRN PRN Reason: for sbp>170 Insulin Human Regular (Humulin R High) 0 units SC ACHS [facility] PRN Reason: Protocol Last Admin: 04/20/17 21:30 Dose: Not Given Levalbuterol HCl (Xopenex) 1.25 mg IH TIDRESP [facility] Last Admin: 04/20/17 19:34 Dose: 1.25 mg Levetiracetam (Keppra) 500 mg PO BID [facility] Last Admin: 04/20/17 17:34 Dose: 500 mg Metoprolol Tartrate (Lopressor) 50 mg PO BID [facility] Last Admin: 04/20/17 17:30 Dose: 50 mg Nystatin (Nystop Topical Powder) 0 gm TOP BID [facility] Last Admin: 04/20/17 10:11 Dose: 1 applic Pantoprazole Sodium (Protonix Inj) 40 mg IVP DAILY [facility] Last Admin: 04/20/17 10:04 Dose: 40 mg Phenytoin Sodium (Dilantin) 100 mg PO TID [facility] Last Admin: 04/20/17 17:28 Dose: 100 mg Pregabalin (Lyrica) 50 mg PO DAILY [facility] Last Admin: 04/20/17 10:07 Dose: 50 mg Results - Vital Signs Recent Vital Signs: Last Vital Signs Temp 98.2 F 04/20/17 16:07 Pulse 67 04/20/17 16:07 Resp 18 04/20/17 16:07 BP 175/90 H 04/20/17 17:29 Pulse Ox 92 L 04/20/17 16:07 - Labs Result Diagrams: 04/20/17 06:00 04/20/17 06:00 Labs: Laboratory Results - last 24 hr 04/20/17 04/20/17 04/20/17 06:00 06:00 06:00 WBC 10.0 RBC 3.66 Hgb 10.3 L Hct 31.0 L MCV 84.7 MCH 28.1 MCHC 33.2 RDW 13.1 Plt Count 263 MPV 9.7 Gran % 75.8 H Lymph % (Auto) 14.0 L Buchanan % (Auto) 6.7 H Eos % (Auto) 3.1 Baso % (Auto) 0.4 Gran # 7.57 H Lymph # (Auto) 1.4 Buchanan # (Auto) 0.7 H Eos # (Auto) 0.3 Baso # (Auto) 0.04 Sodium 142 Potassium 3.2 L Chloride 103 Carbon Dioxide 28 Anion Gap 14 BUN 17 Creatinine 1.5 Est GFR ( Amer) 57 Est GFR (Non-Af Amer) 47 POC Glucose (mg/dL) Random Glucose 165 H Hemoglobin A1c 8.6 H Calcium 9.0 Phosphorus 3.5 Magnesium 1.6 L Total Bilirubin 0.4 AST 23 ALT 22 Alkaline Phosphatase 89 Total Protein 6.4 Albumin 3.2 Globulin 3.2 Albumin/Globulin Ratio 1.0 L Triglycerides 70 Cholesterol 125 L LDL Cholesterol Direct 52 HDL Cholesterol 43 TSH 3rd Generation 04/20/17 04/20/17 04/20/17 06:00 07:28 11:26 WBC RBC Hgb Hct MCV MCH MCHC RDW Plt Count MPV Gran % Lymph % (Auto) Buchanan % (Auto) Eos % (Auto) Baso % (Auto) Gran # Lymph # (Auto) Buchanan # (Auto) Eos # (Auto) Baso # (Auto) Sodium Potassium Chloride Carbon Dioxide Anion Gap BUN Creatinine Est GFR ( Amer) Est GFR (Non-Af Amer) POC Glucose (mg/dL) 144 H 178 H Random Glucose Hemoglobin A1c Calcium Phosphorus Magnesium Total Bilirubin AST ALT Alkaline Phosphatase Total Protein Albumin Globulin Albumin/Globulin Ratio Triglycerides Cholesterol LDL Cholesterol Direct HDL Cholesterol TSH 3rd Generation 1.16 04/20/17 04/20/17 16:37 21:26 WBC RBC Hgb Hct MCV MCH MCHC RDW Plt Count MPV Gran % Lymph % (Auto) Buchanan % (Auto) Eos % (Auto) Baso % (Auto) Gran # Lymph # (Auto) Buchanan # (Auto) Eos # (Auto) Baso # (Auto) Sodium Potassium Chloride Carbon Dioxide Anion Gap BUN Creatinine Est GFR ( Amer) Est GFR (Non-Af Amer) POC Glucose (mg/dL) 171 H 167 H Random Glucose Hemoglobin A1c Calcium Phosphorus Magnesium Total Bilirubin AST ALT Alkaline Phosphatase Total Protein Albumin Globulin Albumin/Globulin Ratio Triglycerides Cholesterol LDL Cholesterol Direct HDL Cholesterol TSH 3rd Generation Attending/Attestation - Attestation I have personally seen and examined this patient.: Yes I have fully participated in the care of the patient.: Yes I have reviewed all pertinent clinical information: Yes Notes (Text): This is an addendum to GI progress report dictated by Carolyn Cantu APN.The patient was seen and examined earlier. Medical records, lab studies, imagings were reviewed. Last 24 hours events reviewed. Agreed with the above treatment plan as outlined in Carolyn Cantu APN's notes the with the addition of the following 04/20/17 22:45
--- NOTE | 2017-04-20 19:52 | PN ---
DATE: SUBJECTIVE: The patient is 66 years old, seen and examined. He states he feels a lot better. He started to have some appetite. Did not vomit since yesterday evening. He states Reglan did help him a lot. No fever, no chills. PHYSICAL EXAMINATION: VITAL SIGNS: He is afebrile, pulse 67, respiration 18, blood pressure 173/90. LUNGS: Bilateral fair airflow. No rhonchi or crackle. HEART: S1 and S2 audible. ABDOMEN: Soft, obese, nontender. No rebound, no guarding. NEUROLOGIC: The patient is awake and alert, able to communicate. EXTREMITIES: Moves all extremities. Bilateral leg, no edema. He has right-sided weakness. LABORATORY DATA: WBC is 10, hemoglobin 10.3, hematocrit 31, platelet of 263. Chemistry: Sodium 142, potassium 3.2, chloride 103, CO2 of 28, BUN 17, creatinine 1.5. Blood sugar of 178. ASSESSMENT: 1. Probably gastroparesis. 2. History of cholelithiasis. 3. Hypertension, uncontrolled. 4. Seizure disorder. 5. Insulin-dependent diabetes. 6. Morbid obesity. 7. Status post recent cerebrovascular accident and difficulty walking. 8. History of chronic obstructive pulmonary disease, currently on Xopenex. PLAN: We will keep the patient on Reglan. Awaiting GI input. Since the patient started we will discontinue IV fluid since the patient's blood pressure is running high. Potassium has been supplemented. Magnesium will be supplemented and we will reevaluate the patient in a.m. If he remains stable, we will make discharge plan in a.m. Trinh Leggett MD
[2017-04-21 02:24] VITALS: O2SAT 96
[2017-04-21] MEDS: Levalbuterol 1.25 MG/3 ML Inhal Soln UD IH SCH ×2 (07:12→13:08)
[2017-04-21 07:13] LABS: BLOOD UREA NITROGEN 15 mg/dL (7-21); CALCIUM 8.7 mg/dL (8.4-10.5); GFR AFRICAN-AMERICAN > 60; GFR NON-AFRICAN AMERICAN 56; MAGNESIUM 1.7 mg/dL (1.7-2.2)
[2017-04-21 08:29] VITALS: RESP 20; TEMP 98.5
[2017-04-21] MEDS: Insulin Reg-HIGH-Coverage SC SCH ×2 (09:24→13:32)
[2017-04-21] MEDS: Nystatin 100,000 Units/gm Topical Pow(15 gm) TOP SCH (09:51)
[2017-04-21] MEDS ORDERED: Potassium Chloride 20 mEq ER Tab PO ONE ×2 (10:37→14:00)
[2017-04-21 14:10] VITALS: BP 145/78; PULSE 64
--- NOTE | 2017-04-21 14:47 | PN ---
DATE: REASON FOR THE CONSULTATION AND FOLLOWUP: History of CVA, hypertension, hyperlipidemia, diabetes, history of cardiac catheterization, cardiac evaluation. SUBJECTIVE: The patient denies any chest pain, shortness of breath or any palpitations. The patient is not in apparent distress. PHYSICAL EXAMINATION VITAL SIGNS: Temperature afebrile, heart rate 62, blood pressure 192/97. HEENT: PERRLA, intact. NECK: Supple. No carotid bruit or thyromegaly. CHEST: Clear to auscultation. HEART: S1 and S2 regular. ABDOMEN: Soft. EXTREMITIES: Clubbing and cyanosis negative. LABORATORY DATA: Blood workup as follows: WBC 10, hemoglobin 10.3, hematocrit 31.0, platelet count 263,000. Chemistry shows sodium 141, potassium 3.1, chloride 103, carbon dioxide 28, anion gap of 13, BUN 15, creatinine 1.3. IMPRESSION: Nausea and vomiting, chronic kidney disease stage III to IV, morbid obesity, diabetes, hypertension, hyperlipidemia, multiple electrolyte imbalance and history of cardiac catheterization 2 years ago and told to have normal coronaries. RECOMMENDATIONS: Aggressively control of blood pressure, monitor electrolytes, supplement electrolytes as needed and neurological workup in progress. Awaiting for cardiac cath report from [facility]. The patient had echocardiography done day before yesterday that showed ejection fraction 50% to 55%, trace aortic regurgitation, mild aortic stenosis, mitral regurgitation, mild tricuspid regurgitation, RV systolic pressure of 46, mild pulmonary hypertension, creatinine clearance 50, this is stage III to IV CKD. We will start hydralazine 50 mg b.i.d. We will follow with you. We will wait for the result of the cardiac cath from [place]. We will supplement potassium. Thank you, Dr. Leggett, for providing us the opportunity in taking care of the patient, Jack Erwin. Casie Fregoso MD
--- NOTE | 2017-04-22 13:45 | DS ---
HISTORY OF PRESENT ILLNESS: The patient is 66 years old, who recently had stroke, was sent to [facility] for rehab. Over there, he started to have intractable nausea and vomiting. There is no history of diarrhea, had one episode of nose bleed. He was getting increasingly weak. He was transferred to [facility] for further evaluation. The patient does have a history of cholelithiasis and that was evaluated in Medical Center, but it was decided since he has recently had stroke, not to have anesthesia and should have surgical intervention done later on. PHYSICAL EXAMINATION: GENERAL: On examination, he is awake, alert, oriented, communicative, not in any distress, eating and tolerating. VITAL SIGNS: He is afebrile, pulse 64, respirations 18, blood pressure 145/78. LUNGS: Bilateral fair airflow. No rhonchi or crackle. HEART: S1 and S2 audible. No murmur. ABDOMEN: Soft, obese, nontender. No rebound, no guarding. NEUROLOGICAL: He is awake and alert, able to communicate. LABORATORY DATA: Sodium is , potassium 3.1, chloride 103, CO2 of 28, BUN 15, creatinine 1.3. Blood sugar of 262. ASSESSMENT: 1. Probably, he has diabetic gastroparesis. 2. Hypertension. 3. Hyperlipidemia. 4. History of cerebrovascular accident with left hemiparesis. 5. Cholelithiasis. 6. Moderate obesity. PLAN: The patient is being transferred back to [facility] and follow up there. We will give him Reglan as needed and he will resume all his medication as prior to admission and follow up the patient . Trinh Leggett MD
== END 2017-04-21 14:45 ==
LOC: ED 21:52 → ERH 04-19 01:03 → 5RSO 04-19 03:09
PROVIDERS: ADMIT Internal Medicine; ATTEND Internal Medicine
DX: E11.43 Type 2 diabetes mellitus with diabetic autonomic (poly)neuropathy (principal); K31.84 Gastroparesis; I12.9 Hypertensive chronic kidney disease with stage 1 through stage 4 chronic kidney disease, or unspecified chronic kidney disease; E78.5 Hyperlipidemia, unspecified; I69.354 Hemiplegia and hemiparesis following cerebral infarction affecting left non-dominant side; K80.20 Calculus of gallbladder without cholecystitis without obstruction; D64.9 Anemia, unspecified; E11.22 Type 2 diabetes mellitus with diabetic chronic kidney disease; E66.01 Morbid (severe) obesity due to excess calories; E78.00 Pure hypercholesterolemia, unspecified; E83.42 Hypomagnesemia; E87.6 Hypokalemia; G40.909 Epilepsy, unspecified, not intractable, without status epilepticus; G47.33 Obstructive sleep apnea (adult) (pediatric); I25.2 Old myocardial infarction; I44.0 Atrioventricular block, first degree; I48.91 Unspecified atrial fibrillation; I63.9 Cerebral infarction, unspecified; J44.9 Chronic obstructive pulmonary disease, unspecified; J90 Pleural effusion, not elsewhere classified; N18.4 Chronic kidney disease, stage 4 (severe); N40.0 Benign prostatic hyperplasia without lower urinary tract symptoms; Z79.4 Long term (current) use of insulin; I08.3 Combined rheumatic disorders of mitral, aortic and tricuspid valves
CPT/HCPCS: 36415; 70450; 74176; 76700; 80048; 80053; 80061; 80185; 81001; 82150; 82550; 82948; 83036; 83615; 83690; 83735; 84100; 84439; 84443; 84484; 85025; 85610; 85730; 87040; 93005; 93306; 94640; 94760; 96361; 96365; 96366; 96374; 96375; 96376; 99285; C9113; G0378; J2405; J3475; J7030; J7040